=== PATIENT | female | born 1955 | race Caucasian/White ===

== ENCOUNTER 2022-10-12 14:53 | Emergency (ER) | payer MEDICARE ==
[~2022-10-12] VITALS: Ht 167.6 cm; Wt 86.2 kg
== END 2022-10-12 16:16 | disposition home or self-care (01) ==
LOC: ED 14:53
DX: S01.511A Laceration without foreign body of lip, initial encounter (principal); Z88.0 Allergy status to penicillin; W01.198A Fall on same level from slipping, tripping and stumbling with subsequent striking against other object, initial encounter; Y93.89 Activity, other specified; Y92.89 Other specified places as the place of occurrence of the external cause; Y99.8 Other external cause status